=== PATIENT | female | born 1975 | race Caucasian/White ===

== ENCOUNTER 2017-12-17 19:17 | Emergency (ER) | payer SELFPAY, OTHER ==
[2017-12-17] MEDS: morphine 4 MG/ML VIAL IV ×2 (22:45→23:38)
[2017-12-17] MEDS: KETOROLAC 30 MG INJ IV (22:46)
[2017-12-17] MEDS: ONDANSETRON 4 MG INJ IV (22:46)
[2017-12-17] MEDS: CLINDAMYCIN 600 MG/D5W (PMX) 50 ML IVPB (22:54)
== END 2017-12-17 23:49 | disposition home or self-care (01) ==
LOC: FTE 19:17
DX: N76.0 Acute vaginitis (principal)
CPT/HCPCS: 81025; 96374; 96375; 96376; 99284-25